=== PATIENT | female | born 1970 | race Caucasian/White ===

== ENCOUNTER → 2023-01-13 10:16 | Outpatient (CLI) | payer BC, SELFPAY ==
--- NOTE | ~2023-01-13 | XR_ITS ---
AP and lateral views of the left hip Clinical history: Pain Findings: No acute fracture or dislocation is seen. Osseous alignment is anatomic. The left hip joint is preserved. Soft tissues are unremarkable. Impression: No significant abnormality is seen. Reviewed, dictated and finalized at location . Impression: No significant abnormality is seen.
== END ==
DX: Z12.31 Encounter for screening mammogram for malignant neoplasm of breast (principal); M25.559 Pain in unspecified hip
CPT/HCPCS: 73502

== ENCOUNTER → 2023-01-22 11:53 | Outpatient (CLI) | payer BC, SELFPAY ==
--- NOTE | ~2023-01-22 | XR_ITS ---
Clinical Indication: Dyspnea PA and lateral views of the chest: Comparison: None Findings: The lungs are clear, without evidence of focal consolidation or pleural effusion. Cardiome diastinal silhouette is within normal limits. Bones and soft tissues are unremarkable. Impression: Normal chest. Reviewed, dictated and finalized at location . Impression: Normal chest.
== END ==
DX: R06.09 Other forms of dyspnea (principal)
CPT/HCPCS: 71046

== ENCOUNTER → 2023-01-22 12:04 | Outpatient (CLI) | payer BC, SELFPAY ==
--- NOTE | ~2023-01-22 | XR_ITS ---
Thoracic spine: Clinical Indication: Pain AP and lateral views were performed. No fracture is seen. There is normal alignment of the vertebrae. The intervertebral disc spaces appe ar normal. Paravertebral soft tissues appear normal. Impression: No significant abnormalities noted. Reviewed, dictated and finalized at [facility]. Impression: No significant abnormalities noted.
--- NOTE | ~2023-01-22 | XR_ITS ---
Cervical Spine: AP, lateral, open-mouth views Clinical History: Pain Findings: The normal lordotic curve is maintained. The vertebral bodies and posterior elements appea r intact. There is mild degenerative disc narrowing at C3-C4, C5 and C6. Moderate degenerative narrow ing present at C6-C7. Pre-vertebral soft tissues are unremarkable. Impression: Degenerative disc narrowing, as above. Reviewed, dictated and finalized at location . Impression: Degenerative disc narrowing, as above.
--- NOTE | ~2023-01-22 | XR_ITS ---
Lumbosacral Spine: AP and lateral views Clinical History: Pain Findings: The normal lordotic curve is maintained. The vertebral bodies and posterior elements are i ntact. The intervertebral disc spaces are preserved. Mild facet joint degenerative changes are prese nt in the lumbar spine. The sacroiliac joints are normally outlined. Large calcified uterine fibroids are present. Impression: Mild facet joint degenerative changes. Multiple large calcified uterine fibroids. Reviewed, dictated and finalized at location . Impression: Mild facet joint degenerative changes. Multiple large calcified uterine fibroids.
== END ==
DX: M54.2 Cervicalgia (principal); M54.50 Low back pain, unspecified; M54.6 Pain in thoracic spine; D25.9 Leiomyoma of uterus, unspecified
CPT/HCPCS: 72040; 72072; 72100

== ENCOUNTER → 2023-12-18 16:19 | Outpatient (CLI) | payer BC, SELFPAY ==
--- NOTE | ~2023-12-18 | XR_ITS ---
EXAMINATION: XR ankle RT min 3V INDICATION: Right ankle pain TECHNIQUE: Four views of the right ankle are obtained. COMPARISON: None available FINDINGS: No fracture, dislocation, or subluxation. The bones, soft tissues, and joint spaces are nor mal. Posterior and plantar calcaneal enthesophytes are noted. IMPRESSION: 1. No acute osseous abnormality. Reviewed, dictated and finalized at location B. [employer]
--- NOTE | ~2023-12-18 | XR_ITS ---
EXAMINATION: XR foot RT min 3V DATE: 12/19/2023 07:09 INDICATION: Right foot pain TECHNIQUE: Dorsoplantar, lateral, and 2 oblique views of the right foot were obtained. COMPARISON: None. FINDINGS: Bone alignment is normal. There is no fracture. There is mild osteoarthritis at the first m etatarsophalangeal joint and in multiple interphalangeal joints. The soft tissues are unremarkable. P osterior and plantar calcaneal enthesophytes are noted. IMPRESSION: 1. No acute osseous abnormality. Reviewed, dictated and finalized at location B. [employer]
== END ==
DX: M25.571 Pain in right ankle and joints of right foot (principal)
CPT/HCPCS: 73610; 73630